=== PATIENT | male | born 1960 | race Caucasian/White ===

== ENCOUNTER → 2018-10-08 | Outpatient (CLI) | payer OTHER ==
[2018-10-08 15:13] LABS: FREE T3 3.69 pg/mL (2.77-5.27); FREE T4 (FREE THYROXINE) 0.63 ng/dL (0.78-2.19)
[2018-10-08 15:26] LABS: THYROID STIMULATING HORMONE 2.67 uIU/mL (0.47-4.68)
== END ==
LOC: OD 14:07
PROVIDERS: ATTEND Surgery
DX: E04.1 Nontoxic single thyroid nodule (principal)
CPT/HCPCS: 36415; 84439; 84443; 84481; 88173

== ENCOUNTER → 2020-01-17 | Outpatient (CLI) | payer OTHER ==
[2020-01-17 12:08] LABS: FREE T3 4.12 pg/mL (2.77-5.27); FREE T4 (FREE THYROXINE) 0.5 ng/dL (0.78-2.19)
[2020-01-17 12:22] LABS: THYROID STIMULATING HORMONE 1.35 uIU/mL (0.47-4.68)
== END ==
LOC: OD 10:10
PROVIDERS: ATTEND Surgery
DX: E07.9 Disorder of thyroid, unspecified (principal)
CPT/HCPCS: 36415; 84439; 84443; 84481

== ENCOUNTER → 2020-01-20 | Outpatient (CLI) | payer OTHER ==
--- NOTE | 2020-01-21 10:48 | RADIOLOGY REPORT (SQ) ---
EXAM DESCRIPTION: MRI CERVICAL SPINE WITHOUT IMAGES COMPLETED DATE/TIME: 01/20/2020 6:44 pm REASON FOR STUDY: (M54.2)CERVICALGIA Z01.89 ENCOUNTER FOR OTHER SPECIFIED SPECIAL EXAMINATIONS M54. 2 CERVICALGIA COMPARISON: None. TECHNIQUE: Sagittal and Axial imaging includes T1, T2, STIR and gradient echo sequences. LIMITATIONS: Motion artifact. FINDINGS: ALIGNMENT: Normal. VERTEBRAE: Grade 1 anterolisthesis of C4 relative to C3 and C5. BONE MARROW: Reactive edema inferior endplate C4. DISCS: Desiccation multiple levels. HARDWARE: None in the spine. CORD AND BASE OF BRAIN: Normal in size and signal intensity. SOFT TISSUES: No soft tissue masses. C1-C2: No significant spinal stenosis. C2-C3: No significant spinal stenosis. Moderate neural foraminal narrowing bilaterally due to disc b ulge and uncovertebral arthropathy. C3-C4: Mild spinal stenosis due to disc bulge and uncovertebral arthropathy. Severe neural foraminal narrowing bilaterally. C4-C5: Mild spinal stenosis due to small central disc herniation and uncovertebral arthropathy. Mode rate left and severe right neural foraminal narrowing. C5-C6: Mild spinal stenosis. Moderate neural foraminal narrowing bilaterally. C6-C7: Mild -moderate spinal stenosis. Severe right and moderate left neural foraminal narrowing. C7-T1: Mild spinal stenosis. Moderate neural foraminal narrowing bilaterally. UPPER THORACIC: Incompletely imaged. No significant spinal stenosis or exit foraminal stenosis. OTHER: No other significant finding. IMPRESSION: Spinal stenosis at multiple levels, more advanced at C6-7. Neural foraminal stenosis. TECHNICAL DOCUMENTATION: JOB ID: [id number] 2010 [employer]- All Rights Reserved Reading location - IP/workstation name: [email or web address]
== END ==
LOC: RAD 17:10
PROVIDERS: ATTEND Family Medicine
DX: M54.2 Cervicalgia (principal)
CPT/HCPCS: 72141

== ENCOUNTER → 2020-05-04 | Outpatient (CLI) | payer OTHER ==
[~2020-05-04] MED LIST: COVID-19 VACCINE (PFIZER)/PF 30 MCG/0.3 ML VIAL IM ONE; EPINEPHRINE INJ/PF 1 MG/1 ML AMPULE IM PRN
== END ==
LOC: EMPHEALTH 14:11
PROVIDERS: ATTEND Internal Medicine
DX: Z23 Encounter for immunization (principal)
CPT/HCPCS: 91300